=== PATIENT | female | born 2000 | race Two or more races ===

== ENCOUNTER 2020-10-07 20:13 | Emergency (ER) | payer OTHER, MEDICAID ==
[~2020-10-07] VITALS: Ht 152.4 cm; Wt 81.6 kg
[2020-10-07 22:30] LABS: Basophils # (auto) 0.1 10 ^3/uL (0-0.2); Eosinophils # (auto) 0.2 10 ^3/uL (0-0.8); Hemoglobin 13.4 g/dL (12.2-16.2); Lymphocytes # (auto) 0.9 10 ^3/uL (0.4-5.4); Monocytes # (auto) 0.9 10 ^3/uL (0-1.3); Neutrophils % (auto) 82.4 % (37.0-80.0); White Blood Cell 11.8 10^3/uL (4.4-10.8)
[2020-10-07 22:31] LABS: Basophils % (auto) 0.7 % (0.0-2.0); Eosinophils % (auto) 1.9 % (0.0-7.0); Hematocrit 39.7 % (36.0-46.0); Lymphocytes % (auto) 7.6 % (10.0-50.0); Mean Corpuscular Hemoglobin 25.8 pg (28.0-32.0); Mean Corpuscular Hgb Conc. 33.6 g/dL (32.0-36.0); Mean Corpuscular Volume 76.7 fL (80.0-100.0); Monocytes % (auto) 7.4 % (0.0-12.0); Neutrophils # (auto) 9.7 10 ^3/uL (1.6-8.6); Red Blood Cells 5.18 10^6/uL (4.0-5.20)
[2020-10-07 22:50] LABS: Calcium 9.2 mg/dL (8.5-10.1); Potassium 3.8 mmol/L (3.5-5.1)
[2020-10-07 23:00] LABS: BUN/Creatinine Ratio 14.3; Bilirubin, Total 0.3 mg/dL (0.2-1.0); Total Protein 8.4 g/dL (6.4-8.2)
[2020-10-08 00:43] VITALS: BP 150/90
[2020-10-08] MEDS ORDERED: ACETAMINOPHEN 325 MG TAB PO ONE (02:15)
[2020-10-08] MEDS ORDERED: DexAMETHasone SOD PHOS 10MG/1ML VIAL INJ IM ONE (02:15)
[2020-10-08 03:03] LABS: Urine Bacteria NONE SEEN /hpf (None Seen); Urine Blood TRACE /uL (Negative); Urine Mucus FEW (None Seen); Urine Specific Gravity 1.017 (1.001-1.035); Urine WBC 6 /hpf (0 - 5)
== END 2020-10-08 04:27 | disposition home or self-care (01) ==
LOC: ER 20:13
DX: R51.9 Headache, unspecified (principal); R42 Dizziness and giddiness; J02.9 Acute pharyngitis, unspecified; E11.9 Type 2 diabetes mellitus without complications
CPT/HCPCS: 36415; 80053; 81001; 84443; 85025; 87070; 87880; 96372; 99283; J1100